=== PATIENT | female | born 1970 | race Caucasian/White ===

== ENCOUNTER 2016-09-23 09:52 | Inpatient (IN) | payer BC ==
[2016-09-23] VITALS (18 sets, daily range): BP systolic 95–148; BP diastolic 45–71
[~2016-09-23] VITALS: Ht 167.6 cm; Wt 94.1 kg
[~2016-09-23 09:52] MED LIST: ACET600C3 PO; ASPI81TA9 PO; BUPR150T15 PO; BUSP5TAB PO; CLOP75TA PO; GABA-586 PO; METF500T4 PO; NICO1PAT21 TP; Nicotine TD; OXYC-323 PO; POLY17PO5 PO; SIMV20TA3 PO; SULF1TAB24 PO; TRAZ50TA15 PO; simvastatin
[2016-09-23] MEDS ORDERED: ESCI10TA PO (10:36)
[2016-09-23 10:38] LABS: BASO # 0.1 x10^3/uL (0.0-0.2); BASO % 1 % (0-3); EOS % 3 % (0-3); HEMOGLOBIN 13.1 g/dL (12.0-15.5); LYMPH # 2.7 x10^3/uL (1.0-4.8); LYMPH % 29 % (24-48); MEAN CORPUSCULAR HEMOGLOBIN 28 pg (25-35); MEAN CORPUSCULAR HGB CONC 33 g/dL (31-37); MEAN CORPUSCULAR VOLUME 85 fL (79-100); MONO % 5 % (0-9); NEUT % 62 % (31-73); PLATELET COUNT 429 x10^3/uL (140-400); RED BLOOD COUNT 4.68 x10^6/uL (3.50-5.40); RED CELL DISTRIBUTION WIDTH 14.9 % (11.5-14.5); WHITE BLOOD COUNT 9.4 x10^3/uL (4.0-11.0)
[2016-09-23] MEDS ORDERED: LIDOCAINE 1% / SOD BICARB 8.4% 20 ML VIAL. IJ ONE ×2 (10:49→12:00)
[2016-09-23] MEDS ORDERED: IODIXANOL 320 MG/ML 100 ML VIAL. ONE (10:50)
[2016-09-23 10:51] LABS: CALCIUM 8.7 mg/dL (8.5-10.1); CREATININE 0.8 mg/dL (0.6-1.0); GFR 77.9; POTASSIUM 3.5 mmol/L (3.5-5.1)
[2016-09-23 10:56] LABS: PROTHROMBIN TIME PATIENT 12.2 SEC (11.7-14.0)
[2016-09-23] MEDS ORDERED: MIDAZOLAM HCL 2 MG/2 ML VIAL. ONE (11:20)
[2016-09-23] MEDS ORDERED: FENTANYL PF 100 MCG/2 ML VIAL. ONE (11:20)
[2016-09-23] MEDS ORDERED: ALTEPLASE 2MG VIAL 10 MG in IV NORMAL SALINE 100ML 100 ML IV ONE (11:30)
[2016-09-23] MEDS ORDERED: FENTANYL PF 100 MCG/2 ML VIAL. IV ONE (11:36)
[2016-09-23] MEDS ORDERED: MIDAZOLAM HCL 2 MG/2 ML VIAL. IV ONE (11:36)
[2016-09-23] MEDS ORDERED: IODIXANOL 320 MG/ML 100 ML VIAL. IART ONE (12:00)
[2016-09-23] MEDS ORDERED: HEPARIN for IV BOLUS 10,000 UNIT/10 ML VIAL. ONE (12:56)
[2016-09-23] MEDS ORDERED: HEPARIN for IV BOLUS 10,000 UNIT/10 ML VIAL. IV ONE (12:58)
--- NOTE | 2016-09-23 13:27 | PDOC1 ---
History and Physical Date of Procedure Date of Admission History of Present Illness Reason for Visit PAD, thrombosed left fem to distal vein graft Past Medical History Past Medical History see nursing pre-op assessment Current Medications Current Medications Current Medications Lidocaine/Sodium Bicarbonate 20 ml 20 ml STK-MED ONCE IJ ; Start 09/23/16 at 10: 49; Stop 09/23/16 at 10:50; Status DC Heparin Sodium/ Sodium Chloride 1,000 ml @ As Directed STK-MED ONCE .ROUTE ; Start 09/23/16 at 10:50; Stop 09/23/16 at 10:51; Status DC Iodixanol 100 ml 100 ml STK-MED ONCE .ROUTE ; Start 09/23/16 at 10:50; Stop at 10:51; Status DC Alteplase, Recombinant/ Sodium Chloride (Cathflo/Iv Sodium Chloride 0.9% 100ml) 100 ml @ 10 mls/hr 1X ONCE IV ; Start 09/23/16 at 11:30; Stop 09/23/16 at 21:29 Fentanyl Citrate (Fentanyl 2ml Vial) 100 mcg STK-MED ONCE .ROUTE ; Start at 11:20; Stop 09/23/16 at 11:21; Status DC Midazolam HCl (Versed) 2 mg STK-MED ONCE .ROUTE ; Start 09/23/16 at 11:20; Stop 09/23/16 at 11:21; Status DC Heparin Sodium/ Sodium Chloride 1,000 unit 1X ONCE IART ; Start 09/23/16 at 12: 00; Stop 09/23/16 at 12:07; Status DC Lidocaine/Sodium Bicarbonate (Buffered Lidocaine 1%) 20 ml 1X ONCE IJ ; Start 09/23/16 at 12:00; Stop 09/23/16 at 12:07; Status DC Midazolam HCl (Versed) 1 mg 1X ONCE IV ; Start 09/23/16 at 11:36; Stop 09/23/16 at 12:07; Status DC Fentanyl Citrate (Fentanyl 2ml Vial) 50 mcg 1X ONCE IV ; Start 09/23/16 at 11:36 ; Stop 09/23/16 at 12:07; Status DC Iodixanol (Visipaque 320) 100 ml 1X ONCE IART ; Start 09/23/16 at 12:00; Stop at 12:07; Status DC Heparin Sodium (Porcine) 10,000 unit STK-MED ONCE .ROUTE ; Start 09/23/16 at 12: 56; Stop 09/23/16 at 12:57; Status DC Heparin Sodium (Porcine) 5,000 unit 1X ONCE IV ; Start 09/23/16 at 12:58; Stop 09/23/16 at 13:16; Status DC Active Scripts Active Percocet 5-325 Mg Tablet (Oxycodone/Acetaminophen) 1 Each Tablet 1-2 Tab PO Q4- 6HRS Aspirin Ec (Aspirin) 81 Mg Tablet. 81 Mg PO DAILYWBKFT Miralax (Polyethylene Glycol 3350) 17 Gm Powd.pack 17 Gm PO PRN DAILY PRN Trazodone Hcl 50 Mg Tablet 50 Mg PO PRN QHS PRN Reported Simvastatin 20 Mg Tablet 20 Mg PO HS Buspirone Hcl 5 Mg Tablet 1 Tab PO TID PRN Gabapentin 300 Mg Capsule 600 Mg PO BID Metformin Hcl 500 Mg Tablet 1 Tab PO BID hold metromin for 48 hrs following a procedure with iv dye Clopidogrel (Clopidogrel Bisulfate) 75 Mg Tablet 1 Tab PO DAILY Escitalopram Oxalate 10 Mg Tablet 10 Mg PO DAILY Allergies Allergies: Coded Allergies: Penicillins (Verified Allergy, Intermediate, tolerates AMOXICILLIN per , 02/19/16) Physical Exam Vital Signs Vital Signs Date Time Temp Pulse Resp B/P Pulse Ox O2 Delivery O2 Flow Rate FiO2 09/23/16 11:01 98.0 67 20 129/61 100 Room Air 98.0 Other see nursing pre-op assessment Assessment Assessment PAD and thrombosed left vein graft Problems: Plan Plan Arteriogram with intervention HUI PEREZ MD Sep 23, 2016 13:27
--- NOTE | 2016-09-23 13:27 | PDOC ---
MODERATE SEDATION ASSESSMENT RISKS/ALTERNATIVES Risks/Alternatives Risks and alternatives of this type of sedation and procedure discussed with: RISK/ALTERNATIVES: Patient H & P ON CHART H & P H & P on chart and reviewed for co-morbid conditions and appropriate labs. H&P ON CHART: Yes STATUS PREG STATUS ASSESSED: Yes MEDS/ALLERGIES REVIEWED Meds/Allergies Reviewed Medications and Allergies including time and route of recently administered narcotics and sedatives. MEDS/ALLERGIES REVIEWED: Yes ASA RATING ASA RATING: II AIRWAY ASSESSMENT Airway Assessment Airway patency, oral function limitations, presence of caps, crowns, dentures, partials, and ability to extend neck assessed. AIRWAY ASSESSMENT: Yes MALLAMPATI SCORE MALLAMPATI SCORE: II PRE-SEDATION ASSESSMENT PRE-SEDATION ASSESSMENT: Yes HUI PEREZ MD Sep 23, 2016 13:27
--- NOTE | 2016-09-23 13:30 | PDOC ---
BRIEF OPERATIVE NOTE Pre-Op Diagnosis PAD and thrombosed left leg vein graft Post-Op Diagnosis same Procedure Performed Aortogram and left leg arteriogram with left [employer] DIRECTOR angioplasty Surgeon Win Anesthesia Type: Conscious Sedation Findings Thrombosed left fem-distal vein graft with no discernible graft stump and failure to access or recannalize the graft. The [place] SFA is patient but small and there are well developed collaterals that reconstitute the peroneal trunk and high AT. PT of the foot is healthy. DP is diminutive. A small intramuscular side branch perforation was self-limited. A non-flow limiting antegrade dissection of the [employer] DIRECTOR was repaired with angioplasty with good result. Complications See findings HUI PEREZ MD Sep 23, 2016 13:30
--- NOTE | 2016-09-23 16:04 | RAD ---
Procedure: Aortogram and left lower extremity arteriogram, angioplasty of the left common femoral artery Clinical Indication: 46-year-old female with severe peripheral arterial disease, and thrombosed left femoral to distal bypass graft Sedation: Conscious sedation was administered for 120 minutes. The patient was monitored by a qualified independent observer throughout the time of sedation. Please refer to the medical record for exact doses of medications utilized to achieve moderate sedation. Antibiotics: None Exposure: Kerma-Area Product: 518 Gycm2 Sterility: All elements of maximal sterile barrier technique including the use of a cap, mask, sterile gown, sterile gloves, large sterile sheet, appropriate hand hygiene, and 2% chlorhexidine for cutaneous antisepsis (or acceptable alternative antiseptic per current guidelines) were followed for this procedure. Consent: The procedure was explained in its entirety to the patient or the patients designated patient accounting representative by a member of the treatment team, including a discussion of the risks, benefits and commonly accepted alternatives to the procedure, as well as the expected consequences of no therapy whatsoever. Discussion of the risks included, but was not limited to, those that are most frequent and those that are rare but possibly severe or life-threatening, as well as the possibility of unforeseen complications. Technique and Findings: Following informed consent, the patient was prepped and draped in usual sterile fashion. Ultrasound interrogation of the right groin revealed a small but patent right common femoral artery. Hardcopy ultrasound image was recorded. As a 21-gauge micropuncture needle was used to gain access to this vessel. The needle was exchanged over wire for 5 [place] sheath. A flush catheter was then advanced in the abdominal aorta and contrast angiography of the pelvis was performed and bilateral oblique with ease. Previously placed right common iliac artery stents are widely patent. The right external iliac and common femoral arteries are markedly diminutive, with occlusion at the level of the common femoral artery from the indwelling sheath. The left common iliac artery and bilateral internal iliac arteries are patent. There is a focal 40-50% stenosis of the left external iliac artery. Left common femoral artery is notable for a high takeoff of the profunda which is widely patent. There is a small shelflike 30-40% stenosis of the left common femoral artery. The flush catheter was then exchanged for an angled catheter which was advanced to the left common femoral artery and contrast angiography of the left leg was performed. The [place] common femoral artery is patent but diminutive, with a diameter of 2 to 4 mm throughout. Mild atherosclerotic disease is seen. This artery results in chronic occlusion at the mid popliteal region. Distal vessels are not well seen. Consequently, an angled catheter was advanced into the high popliteal artery and selective angiography of the lower extremity was performed. There are innumerable well-developed collaterals which reconstitute the proximal anterior tibial and tibioperoneal trunk, resulting in flow to the foot via the posterior tibial artery primarily. The dorsalis pedis artery is diminutive and diseased but does receive flow from a small anterior tibial artery which is reconstituted proximally as well. The peroneal artery occludes above the ankle but contributes flow to the posterior tibial artery the foot. During the most recent catheter repositioning, the patient complained of mid thigh pain. Consequent, catheter was retracted into the high superficial femoral artery and contrast angiography was performed demonstrating a small area of extravasation from a small intramuscular branch of the proximal left superficial femoral artery. This was too small to accommodate a catheter. The catheter was advanced to the ostium of this vessel however and used to obstruct flow within the ostium of this lumen for 7 minutes. Repeat angiography demonstrated no residual arterial extravasation. The small sheath was then exchanged for a curved [place] sheath was advanced to the contralateral left external iliac artery. An angled catheter and Glidewire were used to interrogate the left common femoral artery for the origin of the left femoral to distal vein graft, which was not readily apparent. Multiple maneuvers failed to demonstrate the origin of this vessel. Probing of the common femoral artery at the aforementioned shelflike stenosis resulted in a small nonflow limiting antegrade dissection. Consequently, the patient was given 5000 units of heparin intravenously and a 4 mm x 100 mm angioplasty balloon was used to angioplasty the common femoral artery for 5 minutes. The balloon was removed and repeat angiogram was performed demonstrating excellent angiographic appearance with no flow limitation or residual stenosis. The sheath was then exchanged for a short 6 [place] sheath, and the patient was transferred to the recovery area to undergo manual sheath removal and hemostasis was the ACT falls to appropriately low level. Complications: Small intramuscular arterial perforation which was self-limited. Additionally, there was a nonflow limiting antegrade dissection of the left common femoral artery which was successfully treated with angioplasty. Impression: 1. Moderate multifocal iliofemoral atherosclerosis with no clinically significant stenoses identified. 2. Complete thrombosis of the femoral to distal vein graft, with no discernible ostium and inability to cannulate this vessel. 3. Well-developed collateral reconstitution of the runoff vessels, with dominant flow to the foot via the posterior tibial artery. Dorsalis pedis artery is diseased and likely unsuitable for surgical time. 4. Small self-limited intramuscular arterial perforation. 5. Nonflow limiting antegrade dissection of the left common femoral artery successfully treated with angioplasty.
[2016-09-23] MEDS ORDERED: POLYETHYLENE GLYCOL 3350 17 GM PACKET. PO PRN (17:45)
[2016-09-23] MEDS ORDERED: traZODone 50 MG TABLET. PO PRN (17:45)
[2016-09-23] MEDS ORDERED: busPIRone 5 MG TABLET. PO PRN (17:45)
[2016-09-23] MEDS ORDERED: OXYCODONE/APAP 5/325 TABLET. PO PRN ×2 (17:45→18:00)
[2016-09-23] MEDS ORDERED: GABAPENTIN 300 MG CAPSULE. PO SCH (21:00)
[2016-09-23] MEDS ORDERED: INSULIN ASPART 300 UNITS/3 ML INSULN.PEN SQ SCH (21:00)
[2016-09-23] MEDS ORDERED: SIMVASTATIN 20 MG TABLET PO SCH (21:00)
[2016-09-24] MEDS ORDERED: ESCITALOPRAM 10 MG TABLET. PO SCH (09:00)
== END 2016-09-23 22:25 | disposition home or self-care (01) | DRG 254 ==
LOC: INTRAD 09:52 → CVICU 15:11
PROVIDERS: ADMIT Family Medicine; ATTEND Family Medicine
PROC: 047L3ZZ Dilation of Left Femoral Artery, Percutaneous Approach (ICD-10-PCS; principal; 2016-09-23)
PROC: B41G1ZZ Fluoroscopy of Left Lower Extremity Arteries using Low Osmolar Contrast (ICD-10-PCS; 2016-09-23)
DX: T82.868A Thrombosis due to vascular prosthetic devices, implants and grafts, initial encounter (principal); Y83.8 Other surgical procedures as the cause of abnormal reaction of the patient, or of later complication, without mention of misadventure at the time of the procedure; I73.9 Peripheral vascular disease, unspecified; Z88.0 Allergy status to penicillin; Y92.89 Other specified places as the place of occurrence of the external cause; Z79.899 Other long term (current) drug therapy
CPT/HCPCS: 36415; 37224; 75625; 75710; 76937; 80048; 85027; 85347; 85610; 85730; A4215; C1713; C1725; C1769; C1892; C1894; J2250; J3010